=== PATIENT | male | born 1975 | race Caucasian/White ===

== ENCOUNTER 2017-05-22 09:51 | Inpatient (IN) ==
[2017-05-21 17:19] LABS: Basophils # (Auto) 0.1 K/mcL (0.0-0.3); Basophils % (Auto) 0.6 % (0.0-2.0); Eosinophils # (Auto) 0.2 K/mcL (0.0-0.7); Eosinophils % (Auto) 2.3 % (0.0-7.0); Granulocytes % (Auto) 66.8 % (38.0-78.0); Lymphocytes # (Auto) 2.6 K/mcL (1.5-4.8); Lymphocytes % (Auto) 24.2 % (15.5-49.0); Mean Cell Volume 94.4 fL (80.0-100.0); Mean Corpuscular HGB Conc 33.4 g/dL (31.0-36.0); Mean Corpuscular Hemoglobin 31.5 pg (26.0-34.0); Monocytes # (Auto) 0.7 K/mcL (0.1-0.9); Monocytes % (Auto) 6.1 % (1.0-12.0); Platelet Count 293 K/mcL (140-440); RBC 4.48 M/mcL (4.50-5.90); Red Cell Distribution Width 12.8 % (11.5-14.5)
[2017-05-21 17:21] LABS: Blood Urea Nitrogen 8 mg/dl (6-20)
[2017-05-21 17:48] LABS: Appearance,Urine CLEAR; Bilirubin,Urine NEG (NEG); Color,Urine YELLOW; Glucose,Urine (UA) NEGATIVE (NEG); Leukocyte Esterase,Urine NEG /uL (NEG); Nitrate,Urine NEG (NEG); Protein,Urine NEG (NEG); Urine Blood NEG mg/dL (<0.03); Urobilinogen,Urine NEG (NEG)
[~2017-05-22 09:51] MED LIST: ACETAMINOPHEN 500 MG TABLET PO SCH; CELECOXIB 200 MG CAPSULE PO SCH; PREGABALIN 75 MG CAPSULE PO SCH; ceFAZolin 1 GM VIAL IV SCH; oxyCODONE 10 MG TAB.ER.12H PO SCH
[2017-05-22] MEDS ORDERED: KETOROLAC 30 MG, ROPIVACAINE HCL/PF 49.5 ML, EPINEPHrine 0.5 MG, 0.9 % SODIUM CHLORIDE ... IJ SCH (10:30)
[2017-05-22] MEDS ORDERED: GENTAMICIN SULFATE 800 MG/20 ML VIAL IR ONE (11:06)
[2017-05-22] MEDS ORDERED: TRANEXAMIC ACID 1,000 MG/10 ML VIAL IV ONE ×2 (12:30→13:54)
[2017-05-22] MEDS ORDERED: GLYCOPYRROLATE 0.2 MG/ML VIAL IV ONE (12:30)
[2017-05-22] MEDS ORDERED: ONDANSETRON 4 MG/2 ML VIAL IV ONE (12:30)
[2017-05-22] MEDS ORDERED: PHENYLEPHRINE 10 MG/ML VIAL IV ONE (12:30)
[2017-05-22] MEDS ORDERED: LIDOCAINE HCL/PF 100 MG/5 ML SYRINGE IV ONE (12:30)
[2017-05-22] MEDS ORDERED: PROPOFOL 200 MG/20 ML VIAL IV ONE (12:30)
[2017-05-22] MEDS ORDERED: MIDAZOLAM 2 MG/2 ML VIAL IV ONE (12:30)
[2017-05-22] MEDS ORDERED: KETAMINE 100 MG/ML ML IV ONE (12:30)
[2017-05-22] MEDS ORDERED: BENZOCAINE/MENTHOL 1 LOZENGE PO PRN ×2 (13:33→13:54)
[2017-05-22] MEDS ORDERED: MEPERIDINE 25 MG/ML SYRINGE IV PRN (13:33)
[2017-05-22] MEDS ORDERED: PROMETHAZINE 25 MG/ML VIAL IV PRN (13:33)
[2017-05-22] MEDS ORDERED: diphenhydrAMINE 50 MG/ML VIAL IV PRN (13:33)
[2017-05-22] MEDS ORDERED: ONDANSETRON 4 MG/2 ML VIAL IV PRN ×2 (13:33→13:54)
[2017-05-22] MEDS ORDERED: IPRATROPIUM/ALBUTEROL 3 ML AMPUL.NEB NEB PRN (13:33)
[2017-05-22] MEDS ORDERED: METHOCARBAMOL 1,000 MG/10 ML VIAL IV PRN (13:33)
[2017-05-22] MEDS ORDERED: LACTATED RINGERS 1,000 ML IV SCH (13:45)
[2017-05-22] MEDS ORDERED: BISACODYL 10 MG SUPP.RECT PR PRN (13:54)
[2017-05-22] MEDS ORDERED: TEMAZEPAM 15 MG CAPSULE PO PRN (13:54)
[2017-05-22] MEDS ORDERED: MAGNESIUM HYDROXIDE 30 ML ORAL.SUSP PO PRN (13:54)
[2017-05-22] MEDS ORDERED: POLYETHYLENE GLYCOL 3350 17 GM PACKET PO PRN (13:54)
[2017-05-22] MEDS ORDERED: FLEETS ADULT ENEMA PR PRN (13:54)
[2017-05-22] MEDS ORDERED: ACETAMINOPHEN 325 MG TABLET PO PRN (13:54)
[2017-05-22] MEDS ORDERED: clonazePAM 1 MG TABLET PO PRN (14:06)
--- NOTE | 2017-05-22 14:08 | Brief Operative Note ---
Date of procedure: 05/22/17 Pre-op diagnosis: left hip djd severe Post-op diagnosis: same Procedure: left ramon Grafts/Implants: Yes Anesthesia: GETA Complications: none Complications Description: 05/22/17 14:08 none Surgeon: Raffaele Lamb Tower Supervisor: Hugo Liang Estimated blood loss (cc): 50 Specimens Removed/Pathology: none sent Condition: stable Disposition: PACU
[2017-05-22] MEDS: fentaNYL 100 MCG/2 ML VIAL IV PRN ×2 (14:26→14:39)
--- NOTE | 2017-05-22 15:03 | XRay Report ---
CLINICAL INFORMATION: Postop left total hip prostheses COMPARISON: None. FINDINGS: Left total hip prostheses is anatomically aligned. Mild degenerative change in both SI and right hip joints soft tissue swelling over the surgical site seen as expected IMPRESSION: Negative Interpreted and Authenticated by: Michael Helms 05/22/17
[2017-05-22] MEDS: 0.9 % SODIUM CHLORIDE 10 ML SYRINGE IV SCH ×2 (15:25→20:31)
--- NOTE | 2017-05-22 15:27 | Operative Note ---
DATE OF OPERATION: 05/22/2017 PREOPERATIVE DIAGNOSIS: Left hip degenerative arthritis. POSTOPERATIVE DIAGNOSIS: Left hip degenerative arthritis. PROCEDURE: Left total hip arthroplasty. SURGEON: Raffaele Lamb MD MACHINE HEEL BUILDER: Hugo Liang PA-C ANESTHESIA: General LMA anesthesia. COMPLICATIONS: None. IMPLANTS PLACED: A size 5 cementless stem, a size 54 cup with a dual mobility liner and neutral neck length. COMPLICATIONS: None. ESTIMATED BLOOD LOSS: 40 to 50 mL DESCRIPTION OF PROCEDURE: The patient was brought to the operating room and put to sleep with general LMA anesthesia. Once asleep, the patient had the left hip sterilely prepped and draped in the right lateral position. A timeout was performed and both consent form, initials and x-rays were all evaluated. Once everything matched we confirmed that the patient received IV antibiotics and tranexamic acid. We then made a superior posterior approach through the [place] and dissected through the muscle layer. Once this was dissected the muscle was retracted and we exposed the posterior capsule which was released in the superior posterior approach. We did not cut into the IT band or the fascia of the hip abductors. We did dislocate the hip after tagging the capsule and made the neck cut at 34 mm from the center of hip rotation. Once done, we then reamed up the acetabulum up to the size of 53 and implanted a 54 cup in 20 degrees of anteversion and 40 degrees of inclination. This was a cementless cup with a dual mobility liner. Once we then broached up the hip to the size 5, implanted a size 5 trial stem with 15 degrees of anteversion, standard neck length and x-rays taken. The left hip was on x-ray slightly longer than the right, about 1/4 inch. We then broached and sat the cup down 3 to 4 mm further and a standard neck length was still applied. This gave excellent stability up to 90 degrees of internal rotation. The left leg was slightly longer as the other hip has arthritis and this was the preoperative plan. The final implants were placed with a size 5 cementless stem, neutral neck length ceramic head with a dual mobility liner. The capsule was closed with #2 Ethibond, closed the skin with #1 Stratafix times 2 sutures. We then closed the skin with 2-0 Vicryl and adhesive closure. Sterile bandage applied. The patient left the operating room in good condition. LALITHA:lisa Job ID: [id number] Doc ID: [id number] Raffaele Lamb MD
[2017-05-22] MEDS: oxyCODONE/APAP 5/325MG TABLET PO PRN ×2 (17:08→20:55)
[2017-05-22] MEDS: 0.45 % SODIUM CHLORIDE 1,000 ML IV SCH (17:08)
[2017-05-22] MEDS: METHOCARBAMOL 750 MG TABLET PO PRN ×2 (17:08→22:57)
[2017-05-22] MEDS: KETOROLAC 15 MG/ML VIAL IV PRN ×2 (17:46→23:49)
[2017-05-22] MEDS: HYDROmorphone 2 MG/ML SYRINGE IV PRN ×3 (17:47→22:57)
[2017-05-22] MEDS: DOCUSATE SODIUM 100 MG CAPSULE PO SCH (19:58)
[2017-05-22] MEDS: ASPIRIN 325 MG ENTERIC COATED TABLET PO SCH (19:58)
[2017-05-22] MEDS: cloNIDine HCL 0.1 MG TABLET PO SCH (19:58)
[2017-05-22] MEDS: ceFAZolin 1 GM VIAL IV SCH (19:59)
[2017-05-22] MEDS: DULoxetine 30 MG CAPSULE PO SCH (19:59)
[2017-05-22] MEDS: oxyCODONE 10 MG TAB.ER.12H PO SCH (20:30)
[2017-05-22] MEDS ORDERED: LOSARTAN 50 MG TABLET PO SCH (21:00)
[2017-05-22] MEDS ORDERED: SIMVASTATIN 10 MG TABLET PO SCH (21:00)
[2017-05-22] MEDS ORDERED: SENNOSIDES 1 TABLET PO SCH (21:00)
[2017-05-22] MEDS ORDERED: BACLOFEN 10 MG TABLET PO SCH (21:00)
[2017-05-23] MEDS: 0.45 % SODIUM CHLORIDE 1,000 ML IV SCH ×2 (00:58→10:46)
[2017-05-23] MEDS: HYDROmorphone 2 MG/ML SYRINGE IV PRN ×4 (01:15→08:10)
[2017-05-23] MEDS: oxyCODONE/APAP 5/325MG TABLET PO PRN ×2 (01:15→04:51)
[2017-05-23] MEDS: METHOCARBAMOL 750 MG TABLET PO PRN (03:48)
[2017-05-23] MEDS: ceFAZolin 1 GM VIAL IV SCH (04:19)
[2017-05-23] MEDS: 0.9 % SODIUM CHLORIDE 10 ML SYRINGE IV SCH (04:20)
[2017-05-23] MEDS ORDERED: OMEPRAZOLE 20 MG CAPSULE PO SCH (07:30)
--- NOTE | 2017-05-23 07:36 | Orthopedic Progress Note ---
Subjective Patient information: Note initiated : 05/23/17 at 7:34 am Service Date, if different from initiated Date: [] Patient: Ariana Valle 42 y/o M admitted on 05/22/17 for Left Total Hip Arthroplasty. Chief Complaint: [Pt is stable this morning on post operative day 1 without any significant concerns or complaints. Patients vital signs have remained stable. Patients dressing is dry and exhibits a grossly intact neurovascular and neuromotor exam. Patients 10 point ROS is otherwise negative except pain control as he normally sits 6/10 day to day and is currently 8/10. ] Objective Vital signs: Vital Signs Temp Pulse Resp BP BP Pulse Ox 05/23/17 06:00 94 05/23/17 04:00 93 05/23/17 03:59 98.0 F 97 H 18 107/65 93 05/23/17 02:00 93 05/23/17 00:22 98.6 F 99 H 18 119/73 95 05/23/17 00:00 95 05/22/17 20:00 98.1 F 67 18 129/90 96 05/22/17 18:04 61 24 H 143/94 97 05/22/17 18:02 97 05/22/17 17:25 99 H 125/84 05/22/17 15:55 72 127/84 96 05/22/17 15:40 69 128/85 94 05/22/17 15:23 66 114/76 96 05/22/17 15:18 97 05/22/17 15:10 97.6 F 66 12 117/77 94 05/22/17 14:50 98.1 F 75 16 139/82 100 05/22/17 14:40 80 15 136/95 97 05/22/17 14:35 81 19 132/85 93 05/22/17 14:30 70 11 L 136/90 93 05/22/17 14:25 71 15 125/80 96 05/22/17 14:20 81 17 117/68 95 05/22/17 14:15 87 14 128/66 97 05/22/17 14:10 102 H 10 L 123/68 98 05/22/17 14:05 97.1 F 97 H 12 97/83 96 05/22/17 10:04 98 F 90 16 142/96 93 Intake and Output 05/22/17 05/23/17 05/23/17 21:59 05:59 13:59 Intake Total 2640 / 2640 2400 / 2400 Output Total 150 / 150 3125 / 3125 600 / 600 Balance 2490 / 2490 -725 / -725 -600 / -600 Intake: IV 2400 / 2400 Oral 240 / 240 2400 / 2400 Output: Void Amount 3125 / 3125 600 / 600 Estimated Blood Loss 150 / 150 Other: Meal Dinner Percent of Meal Consumed 100% # Voids 1 1 Weight 290 lb Intake & Output: Intake & Output 05/22/17 05/23/17 05/23/17 21:59 05:59 13:59 Intake Total 2640 / 2640 2400 / 2400 Output Total 150 / 150 3125 / 3125 600 / 600 Balance 2490 / 2490 -725 / -725 -600 / -600 Weight 290 lb Intake: IV 2400 / 2400 Oral 240 / 240 2400 / 2400 Output: Void Amount 3125 / 3125 600 / 600 Estimated Blood Loss 150 / 150 Other: Meal Dinner Percent of Meal Consumed 100% # Voids 1 1 Incision: Yes healing Dressing: Yes dry Weight bearing status: full Neurological exam IM: Yes motor sensory intact, Yes neurovascular intact Extremities exam IM: Yes Foot pink and warm, Yes neurovascular intact - Labs CBC & BMP: 05/23/17 04:40 05/21/17 14:43 Labs: Orthopedic Labs 05/21/17 14:43 PT 12.4 INR 0.9 APTT 31 05/23/17 05/21/17 04:40 14:43 Hgb 14.1 Hct 31.3 L 42.3 Assessment and Plan (1) Hx of total hip arthroplasty The patient has been educated regarding dressing care, Physical Therapy recommendations, home exercises, restrictions, and follow up appointments. The patient has had all necessary DME prescribed. The patient has remained stable during their hospital course. The patient was discharge with a stable exam. Leave Dermabond patch intact until followup Status: Acute
--- NOTE | 2017-05-23 07:38 | Discharge Summary ---
Ortho Discharge - [facility] - Patient Instructions Diet: Regular Diet Activity: activity as tolerated, weight bearing as tolerated Total Hip Protocol: Follow activity instructions as provided by Physical Therapy. Dressing Care: May shower in 2 days Patient Education: Aspirin (By mouth), Oxycodone, Rapid Release (By mouth), Total Hip Replacement (DC) Additional Instructions: Discharge Instructions: Do the exercises at home that physical therapy gave you. You are scheduled to start physical therapy at [facility] ([phone]) on May 26 at 10:30 am, please arrive 15 minutes early for paperwork. Take your prescription, photo ID, insurance cards, and current medication list with you to your first physical therapy appointment. Take your prescription to pickling tank operator any medication or equipment (such as walker, crutches, toilet riser or C.P.M.) Wear comfortable clothing for your physical therapy (wear/bring shorts). Weight bearing as tolerated. You have Dermabond (a dressing with a mesh-like appearance), leave open to air. Do not remove this dressing. You may start showering on post op day #2, do not soak in tub/pool. The Dermabond dressing can get wet, do not scrub dressing. Pat dry. To avoid constipation while taking any narcotic pain medication, take an over the counter stool softener/laxative. Use ice packs as directed, on for 20 minutes at a time throughout the day. This and elevation will help with pain and swelling. Call your physician for fevers above 100.5 or pain not controlled by medication. Your prescriptions are with your discharge information. Some medications were electronically transmitted to your pharmacy of choice. - Problem Maintenance (1) Hx of total hip arthroplasty Status: Acute - Follow Up Plan Follow Up Appointments: Raffaele Lamb MD [Physician] - 06/04/17 1:10 pm Disposition: Home, Self-Care Prognosis: Good Rehab Potential: Good I certify that the patient requires SNF services: No Overall status at discharge: patient is progressing back to baseline - Orders For Discharge Prescriptions: Aspirin [Ecotrin] 325 mg PO BID #28 tab.ec oxyCODONE HCL [Roxicodone] 5 - 10 mg PO Q4HP PRN #60 tab PRN Reason: Pain Additional Discharge Orders: Physical Therapy at Discharge - [facility] Location: Determined By Patient Toilet Riser Discharge Order Location: Determined By Patient Walker Location: Determined By Patient
[2017-05-23] MEDS: cloNIDine HCL 0.1 MG TABLET PO SCH (07:43)
[2017-05-23] MEDS: DULoxetine 30 MG CAPSULE PO SCH (07:43)
[2017-05-23] MEDS: oxyCODONE 10 MG TAB.ER.12H PO SCH (07:43)
[2017-05-23] MEDS: ASPIRIN 325 MG ENTERIC COATED TABLET PO SCH (07:43)
[2017-05-23] MEDS: DOCUSATE SODIUM 100 MG CAPSULE PO SCH (07:43)
[2017-05-23] MEDS ORDERED: FLUTICASONE PROPIONATE SPRAY.NAS NS SCH (09:00)
[2017-05-23] MEDS ORDERED: FLU VACC QS2017-18 36MOS UP/PF 60 MCG/0.5 ML SYRINGE IM ONE (10:00)
== END 2017-05-23 09:30 | disposition home or self-care (01) | DRG 470 ==
LOC: MEDSUR 09:51
PROVIDERS: ADMIT Orthopaedic Surgery; ATTEND Orthopaedic Surgery